=== PATIENT | male | born 1945 | race Caucasian/White ===

== ENCOUNTER 2017-01-16 05:47 | Day surgery (SDC) | payer MEDICARE, OTHER ==
[2017-01-16] MEDS ORDERED: LACTATED RINGERS 1,000 ML ONE (06:03)
--- NOTE | 2017-01-16 09:19 | OP ---
DATE OF PROCEDURE: 01/16/17 PREOPERATIVE DIAGNOSIS: 1. History of polyps. The patient's last colonoscopy was in 2006. 2. Family history of colon cancer in his mother. 3. Family history of colonic polyps in his brother. POSTOPERATIVE DIAGNOSIS: 1. Colonic polyps. 2. Diverticulosis. 3. Internal hemorrhoids. PROCEDURE: 1. Colonoscopy plus polypectomy. SURGEON: Teja Shelby MD. COMPLICATIONS: None apparent. BLOOD LOSS: None. MEDICATIONS: Monitored anesthesia care. DESCRIPTION OF PROCEDURE: Informed consent was obtained prior to sedation. The preprocedure cardiopulmonary assessment was satisfactory. The patient was placed in the left lateral decubitus position and was sedated. A digital rectal exam was unremarkable. The tip of the Olympus colonoscope was inserted in the rectum and guided over to the cecum. The cecum was identified by locating the ileocecal valve and appendiceal orifice. Prep was good. The mucosa of the cecum, ascending colon, hepatic flexure, transverse colon, splenic flexure, descending colon and sigmoid colon was closely examined. Direct and retroflexed views of the rectum were obtained. There were four polyps seen during the exam. One was in the proximal ascending colon, two were in the proximal transverse colon, and one was in the descending colon. These were all 4 to 6 mm in size and were all sessile. They were all removed with a hot snare and recovered. There were multiple sigmoid diverticula. There were internal hemorrhoids. Otherwise, colonoscopy was unremarkable. RECOMMENDATIONS: Followup the polyp pathology to decide when the next colonoscopy should be performed. #[id number] cc: Babatunde Broussard MD MTDD
[2017-01-16] MEDS ORDERED: PROPOFOL 200 MG/20 ML VIAL IV ONE (10:00)
[2017-01-16 14:05] VITALS: BP 145/84; TEMP 97; O2SAT 95
== END 2017-01-16 09:50 | disposition home or self-care (01) ==
LOC: AMB 05:47
PROVIDERS: ATTEND Internal Medicine Gastroenterology
DX: Z12.11 Encounter for screening for malignant neoplasm of colon (principal); D12.2 Benign neoplasm of ascending colon; D12.4 Benign neoplasm of descending colon; D12.3 Benign neoplasm of transverse colon; K57.30 Diverticulosis of large intestine without perforation or abscess without bleeding; K64.8 Other hemorrhoids; Z86.010 Personal history of colon polyps; Z87.891 Personal history of nicotine dependence; Z80.0 Family history of malignant neoplasm of digestive organs; Z83.71 Family history of colonic polyps; Z79.899 Other long term (current) drug therapy
CPT/HCPCS: 00810; 45385; 88305; J3490; J7120

== ENCOUNTER → 2019-08-05 | Outpatient (CLI) | payer MEDICARE, OTHER ==
--- NOTE | 2019-08-06 10:54 | CT ---
EXAM DESCRIPTION: Abdomen/Pelvis w/Contrast: Computed Tomography. CLINICAL HISTORY: 73 years Male OTHER SPECIFIED ABDOMINAL HERNIA WITHOUT OBSTRUCTION OR GANGRENE COMPARISON: CT scan abdomen and pelvis March 2018. TECHNIQUE: Spiral-axial scans at 5 x 5 mm intervals through the abdomen and pelvis, after nonionic IV contrast without oral contrast. Coronal and sagittal 2.0mm reconstructions. No adverse reactions. Total Exam DLP: 834 mGy-cm. This exam was performed according to our departmental dose-optimization program which includes automated exposure control, adjustment of the mA and/or kV according to patient size and/or use of iterative reconstruction technique; to reduce radiation dose to as low as reasonably achievable (ALARA). FINDINGS: Lung bases and pleura: Pleural parenchymal scarring. Liver, Stomach, Spleen, Adrenal Glands: Subcentimeter cyst lateral segment left hepatic lobe, and right lobe 18.6 cm long axis. Small gastric hiatal hernia. Adrenal glands and spleen negative. Pancreas, Gallbladder, Ducts: Gallbladder visualized. Fatty pancreas with atrophy. Normal caliber duct. No interval change. Kidneys and Ureters: Negative. Mesentery: Interest the anterior left pelvic abdominal wall hernia along with intestine. No abnormal enhancement or fluid collection. Stable since the prior study. Aorta: Minimal atherosclerotic changes. Small Bowel: Minimal distention in the jejunum with fluid but no air-fluid levels and normal caliber more distally. Terminal Ileum/Cecum: Normal caliber. Surgical clips inferior lateral cecum. Appendix not seen. No inflammatory changes. Colon: Minimal fecal matter. Scattered diverticula beginning in the proximal transverse colon. The distal descending colon and proximal sigmoid colon are incarcerated in the left mid pelvic anterior hernia sac but no evidence of strangulation. Stable since the prior study. Transverse diameter of the hernia neck is 3.3 cm and craniocaudal dimension is 3.6 cm, with no interval change. Diverticula also seen in the remainder of the sigmoid colon with moderate redundancy. No complications. Pelvic Organs: Minimal distention urinary bladder with no radiodense stones. Minimal urinary bladder wall thickening. Prior prostatectomy. No free fluid. Spine and Bony Pelvis: Chronic spondylosis and disc space loss L5-S1 and also mild spondylosis lower thoracic spine. Abdominal Wall/Back Soft Tissues: Moderate fatty inguinal hernia with no incarcerated bowel. Left fatty inguinal hernia is abutting and possibly associated with previously described abdominal wall hernia. The left spermatic vascular cord does not enter the previously described hernia. IMPRESSION: 1. Chronic abdominal wall hernia left mid pelvis with incarcerated distal descending colon and proximal sigmoid colon, but no strangulation or obstruction. No abnormal mesenteric enhancement or fluid collection. Stable appearance and size since the prior study. Associated with fatty left inguinal hernia but not containing the left vascular spermatic cord. Right fatty inguinal hernia without incarcerated bowel is stable. Colonic diverticulosis without complications. 2. No interval change in hepatomegaly with small left hepatic lobe cyst. Stable small gastric hiatal hernia. Fatty pancreas with atrophy unchanged. Electronically signed by: David Hdz MD 08/06/2019 10:53 AM CDT
== END ==
LOC: CT 12:44
PROVIDERS: ATTEND Family Medicine
DX: K45.8 Other specified abdominal hernia without obstruction or gangrene (principal); K40.20 Bilateral inguinal hernia, without obstruction or gangrene, not specified as recurrent; K57.30 Diverticulosis of large intestine without perforation or abscess without bleeding; R16.0 Hepatomegaly, not elsewhere classified; K86.89 Other specified diseases of pancreas; K76.89 Other specified diseases of liver

== ENCOUNTER 2019-08-27 05:41 | Day surgery (SDC) | payer MEDICARE, OTHER ==
[2019-08-27] MEDS ORDERED: LACTATED RINGERS 1,000 ML ONE (06:50)
[2019-08-27] MEDS ORDERED: ceFAZolin SODIUM 1 GM VIAL ONE (07:00)
[2019-08-27] MEDS ORDERED: PROPOFOL 200 MG/20 ML VIAL IV ONE (07:00)
[2019-08-27] MEDS ORDERED: MAGNESIUM SULFATE INJ 1 GM/2 ML VIAL ONE (07:00)
[2019-08-27] MEDS ORDERED: diphenhydrAMINE HCL 50 MG/ML VIAL ONE (07:00)
[2019-08-27] MEDS ORDERED: SODIUM CHLORIDE 0.9% 50 ML VIAL ONE (07:00)
[2019-08-27] MEDS ORDERED: LIDOCAINE 1% 10 ML VIAL INJ ONE (07:00)
[2019-08-27] MEDS ORDERED: DEXAMETHASONE INJ 10 MG/ML VIAL ONE (07:00)
[2019-08-27] MEDS ORDERED: ePHEDrine SULF 50 MG/ML ONE (07:00)
[2019-08-27] MEDS ORDERED: KETAMINE HCL 100 MG/ML VIAL ONE (10:26)
[2019-08-27] MEDS ORDERED: FAMOTIDINE INJ 10 MG/ML VIAL IV ONE (10:27)
[2019-08-27] MEDS ORDERED: ROCURONIUM BROMIDE 10 MG/ML VIAL ONE (10:27)
[2019-08-27] MEDS ORDERED: MIDAZOLAM INJ 2 MG/2 ML VIAL ONE (10:27)
[2019-08-27] MEDS ORDERED: fentaNYL CITRATE INJ 50 MCG/ML 2 ML AMP ONE ×2 (10:27→11:42)
[2019-08-27] MEDS ORDERED: SUGAMMADEX SODIUM 200 MG/2 ML VIAL IV ONE (10:58)
[2019-08-27] MEDS: ceFAZolin SODIUM 1 GM VIAL IVPB ONE (11:19)
[2019-08-27] MEDS: BUPIVACAINE 0.5% W/EPI 30 ML VIAL INJ ONE (11:30)
[2019-08-27] MEDS ORDERED: DEXMEDETOMIDINE HCL 200 MCG/2 ML INJ IV ONE (11:42)
[2019-08-27] MEDS: ELECTROLYTE-A 1,000 ML IVS ONE (12:43)
[2019-08-27] MEDS: HYDROcodone 5MG/APAP 325MG 1 EA TAB ONE (13:36)
[2019-08-27 14:54] VITALS: BP 152/66; TEMP 96.9; O2SAT 100
--- NOTE | 2019-09-09 10:18 | OP ---
DATE OF PROCEDURE: 08/27/19 PREOPERATIVE DIAGNOSIS: 1. Left incarcerated Spigelian hernia. POSTOPERATIVE DIAGNOSIS: 1. Left incarcerated Spigelian hernia. PROCEDURE: 1. Laparoscopic assisted repair of incarcerated left Spigelian hernia. SURGEON: Magno Delgadillo MD. ANESTHESIA: General and local. FINDINGS: The colon was in a low, low Spigelian hernia, about a foot of the colon. This was reduced. The defect itself was very low, near a direct hernia part underneath the external oblique. The lateral border was the ASIS, so we decided to repair it similarly to a direct inguinal hernia. COMPLICATIONS: None. ESTIMATED BLOOD LOSS: None. SPECIMEN: None. PLAN: Discharge. INDICATION: As stated. PROCEDURE: General anesthesia was induced. He was prepped and draped in sterile fashion. 0.5% Marcaine with epinephrine was used at the incision site. While maintaining upward traction, a venessa was made near the base of the umbilicus. Veress needle was introduced. There was free flow of fluid into the peritoneal cavity, which was insufflated to an appropriate level with CO2 gas. The 5 mm trocar was placed, followed by the camera. There was no evidence of bleeding or bowel injury. The patient was positioned and we identified the hernia. Two right lateral ports were placed. We then began our dissection. The colon was up in there, at least a foot. We did have to use cautery to score the mesentery and peritoneum around the hernia site and this enabled us to free it up. The lateral white line of Toldt seemed to be involved as well as some of the colonic mesentery, so this did disrupt the peritoneum getting it out. We then realized how low it was. It was underneath the external oblique and high. No indirect component could be seen at this time, so given our mesh situation, it looked like the best way to repair this would be open with PHS, so we desufflated the abdomen and made an incision over the area of the defect. The external oblique was then opened. I did identify a small indirect hernia with this. This was dissected out and reduced and while keeping the epigastric vessels anteriorly, the large PHS mesh was used. There were a few interrupted 2-0 Vicryl sutures to close the defect from the lateral position. There was good coverage of the mesh. The mesh was lying flat. We then laid it out externally, cut it, wrapped around the cord non-stricturing. The external oblique was then closed with a running 2-0 Vicryl with care not to get the ilioinguinal nerve block, which was not directly identified at this point. The skin was then closed in 2 layers. We then reinsufflated the abdomen and look in with our camera. There was a slight defect in the peritoneum, but this was more inferior. I grabbed this and we used a clip rehab care assistant to place 3 clips which closed this defect to avoid any mesh contact with the bowel and that seemed to hold it nicely. At this point, everything looked good. There was no bleeding. The hernia had excellent coverage. The mesh was in place and protected, so the abdomen was desufflated. The wounds were closed with Monocryl and dressing applied. He was awakened and taken to Recovery to be discharged. #[id number] cc: Asher Wadsworth MD MTDD
== END 2019-08-27 14:55 | disposition home or self-care (01) ==
LOC: AMB 05:41
PROVIDERS: ATTEND Surgery
DX: K43.6 Other and unspecified ventral hernia with obstruction, without gangrene (principal); L82.1 Other seborrheic keratosis; Z79.899 Other long term (current) drug therapy; Z85.46 Personal history of malignant neoplasm of prostate
CPT/HCPCS: 00790; 11402; 36415; 49653; 80048; 85025; 88305; 93005; A4216; J0690; J1100; J1200; J2250; J3010; J3475; J3490; J7120